=== PATIENT | female | born 1980 | race Caucasian/White ===

== ENCOUNTER 2024-06-21 13:15 | Emergency (ER) | payer OTHER ==
[~2024-06-21] VITALS: Ht 172.7 cm; Wt 129.7 kg
[2024-06-21] MEDS ORDERED: ACETAMINOPHEN 500 MG TAB PO ONE (14:15)
[2024-06-21] MEDS ORDERED: ONDANSETRON 4 MG TAB ODT SL ONE (14:15)
[2024-06-21 14:16] VITALS: BP 138/87
== END 2024-06-21 14:17 | disposition home or self-care (01) ==
LOC: ED 13:15
DX: S06.0X0A Concussion without loss of consciousness, initial encounter (principal); W00.0XXA Fall on same level due to ice and snow, initial encounter; I10 Essential (primary) hypertension; Z87.891 Personal history of nicotine dependence; Z88.0 Allergy status to penicillin; Z88.8 Allergy status to other drugs, medicaments and biological substances; Z91.040 Latex allergy status
CPT/HCPCS: 99282; A9270